=== PATIENT | female | born 1995 | race Hispanic/Latino ===

== ENCOUNTER 2018-12-18 07:16 | Inpatient (IN) | payer SELFPAY ==
[2018-12-18] MEDS ORDERED: KEPPRA 1,000 MG/NS 0.75% 100ML 1,000 MG/100 ML BAG IV ONE ×4 (07:55→16:14)
--- NOTE | 2018-12-18 08:00 | Emergency Department Report ---
ED Seizure HPI - General Chief Complaint: Seizure Stated Complaint: SEIZURE Time Seen by Provider: 12/18/18 07:58 Source: patient Mode of arrival: Ambulatory Limitations: No Limitations - History of Present Illness Initial Comments: Patient is a 23-year-old female that presents emergency room with seizure activity. Patient's postictal at this time and history is per patient's significant other. Patient's mother states that the patient was angry vehicle with a days ago but has not picked up her meds since being discharged from the hospital so she has not had meds for 2 days. Patient takes Dilantin, Keppra, Tegretol. Patient had 2 seizures yesterday and another seizure on the way to the hospital today. - Related Data Home Medications Medication Instructions Recorded Confirmed Last Taken Phenytoin Sodium Extended 300 mg PO TID 12/18/18 12/18/18 12/16/18 levETIRAcetam [Keppra TAB] 750 mg PO TID 12/18/18 12/18/18 12/16/18 Allergies Allergy/AdvReac Type Severity Reaction Status Date / Time lorazepam [From Ativan] Allergy Unknown Unknown Verified 12/18/18 07:31 ketorolac [From Toradol] Allergy Hives Verified 12/18/18 07:31 mayonnaise Allergy Unknown Verified 12/18/18 07:31 ED Review of Systems ROS: Stated complaint: SEIZURE Other details as noted in HPI Comment: Unobtainable due to pts medical conditions ED Past Medical Hx - Past Medical History Previous Medical History?: Yes Hx Hypertension: No Hx CVA: No Hx Heart Attack/AMI: No Hx Congestive Heart Failure: No Hx Diabetes: No Hx Deep Vein Thrombosis: No Hx Pulmonary Embolism: No Hx GERD: No Hx Liver Disease: No Hx Renal Disease: No Hx Sickle Cell Disease: No Hx Arthritis: No Hx Headaches / Migraines: Yes Hx Seizures: Yes Hx Kidney Stones: No Hx Psychiatric Treatment: No Hx Asthma: Yes Hx COPD: No Hx Tuberculosis: No Hx Dementia: No Hx HIV: No - Surgical History Past Surgical History?: Yes Hx Coronary Stent: No Hx Open Heart Surgery: No Hx Pacemaker: Yes Hx Internal Defibrillator: No Hx Cholecystectomy: No Hx Appendectomy: No Hx Breast Surgery: No - Family History Family history: no significant - Social History Smoking Status: Never Smoker Substance Use Type: Marijuana - Medications Home Medications: Home Medications Medication Instructions Recorded Confirmed Last Taken Type Phenytoin Sodium Extended 300 mg PO TID 12/18/18 12/18/18 12/16/18 History levETIRAcetam [Keppra TAB] 750 mg PO TID 12/18/18 12/18/18 12/16/18 History ED Physical Exam - General Limitations: Altered Mental Status, Physical Limitation General appearance: in no apparent distress, postictal - Head Head exam: Present: atraumatic, normocephalic - Eye Eye exam: Present: normal appearance - ENT ENT exam: Present: mucous membranes moist - Neck Neck exam: Present: normal inspection - Respiratory Respiratory exam: Present: normal lung sounds bilaterally. Absent: respiratory distress - Cardiovascular Cardiovascular Exam: Present: regular rate, normal rhythm. Absent: systolic murmur, diastolic murmur, rubs, gallop - GI/Abdominal GI/Abdominal exam: Present: soft, normal bowel sounds - Rectal Rectal exam: Present: deferred - Extremities Exam Extremities exam: Present: normal inspection - Back Exam Back exam: Present: normal inspection - Neurological Exam Neurological exam: Present: altered - Skin Skin exam: Present: warm, dry, intact, normal color. Absent: rash ED Course Vital Signs 12/18/18 12/18/18 12/18/18 07:34 07:48 07:51 Temperature 98.7 F Pulse Rate 95 H 86 Respiratory 18 16 22 Rate Blood Pressure Blood Pressure 116/71 [Left] O2 Sat by Pulse 100 99 Oximetry 12/18/18 12/18/18 12/18/18 08:00 08:15 08:30 Temperature Pulse Rate 74 72 74 Respiratory 20 14 12 Rate Blood Pressure 107/67 107/67 110/70 Blood Pressure [Left] O2 Sat by Pulse 99 Oximetry 12/18/18 12/18/18 12/18/18 08:45 09:01 10:01 Temperature Pulse Rate 94 H 84 70 Respiratory 24 17 15 Rate Blood Pressure 110/70 110/70 95/53 Blood Pressure [Left] O2 Sat by Pulse Oximetry 12/18/18 12/18/18 12/18/18 10:15 10:31 10:45 Temperature Pulse Rate 72 95 H 70 Respiratory 15 23 17 Rate Blood Pressure 95/53 95/53 95/53 Blood Pressure [Left] O2 Sat by Pulse Oximetry 12/18/18 12/18/18 12/18/18 11:00 11:15 11:30 Temperature Pulse Rate 63 84 77 Respiratory 9 L 12 20 Rate Blood Pressure 94/52 94/52 101/69 Blood Pressure [Left] O2 Sat by Pulse Oximetry 12/18/18 12/18/18 12/18/18 11:45 12:01 12:15 Temperature Pulse Rate 134 H 131 H 129 H Respiratory 18 22 16 Rate Blood Pressure 101/69 107/76 119/60 Blood Pressure [Left] O2 Sat by Pulse 100 98 97 Oximetry 12/18/18 12:22 Temperature Pulse Rate 144 H Respiratory 0 L Rate Blood Pressure Blood Pressure [Left] O2 Sat by Pulse 100 Oximetry - Reevaluation(s) Reevaluation #1: is alert and oriented 3. Patient denies any physical complaints. Discussed all results and clinical findings with patient. Patient is stable for discharge. Patient will be discharged home.. Patient agrees to plan of care.. Patient given discharge instructions. Patient voiced understanding of discharge instructions. 12/18/18 10:13 Patient began to have seizure activity. Seizure auto terminated and patient is now postictal. Patient is unable to take any type of benzos due to the fact that her throat swells closed with benzodiazepines. Patient was admitted to the hospitalist service. Discharge will be held. 12/18/18 10:40 Patient continues to have seizure and patient will be intubated to control her seizure activity. See procedure note 12/18/18 11:25 Patient intubated and will be placed on drip. Patient into bed without problem or complication 12/18/18 11:44 Patient still hasn't gotten a foreign object. Patient will be given ketamine and given 100 mg IV push of fentanyl. 12/18/18 12:15 She maxed out on fentanyl. Patient was placed on propofol drip. Patient also required another IV due to the amount of drip running. Patient had a left EJ started 12/18/18 12:35 - Consultations Consultation #1: Hospitalist consulted for admission. Hospitalist to admit patient. Hospitalist to assume care patient. 12/18/18 10:46 Hospitalist made aware of the multiple seizures the patient. 12/18/18 12:10 Dr. Krishnamurthy made aware of the number of seizures the patient has had since being intubated. 12/18/18 15:35 - EJ/Peripheral Line Neck L Time Out Performed: Yes Indications: nurses unable to establis Skin Cleansed in Sterile Fashion: Yes Size: 20 Dressing Placed: Tegaderm, tape Patient Tolerated Procedure: well - Intubation Time Out Performed: Yes Sedative: Etomidate Paralytic: Rocuronium Laryngoscope: Rene Size: 4 ET Tube Size: 7 Tube Secured Depth (cm): 22 Tube Secured Location: teeth Tube Placement Confirmation: visualized tube passing t, equal breath sounds bilat, no breath sounds over epi, confirmation by capnometr Patient Tolerated Procedure: well, no complications ED Medical Decision Making - Lab Data Result diagrams: 12/18/18 07:54 12/18/18 07:54 - Radiology Data Radiology results: report reviewed, image reviewed interpreted by me: Chest x-ray reviewed prior to x-ray being sent to radiologist and x-ray shows good placement of ET tube AP CHEST: HISTORY: Endotracheal tube placement The endotracheal tube is in good position terminating 3.9 cm superior to the jorje. A nasogastric tube is followed to the stomach. AP view of the chest demonstrates a normal mediastinal and cardiac contour with clear lungs and normal bony and soft tissue structures. IMPRESSION: Unremarkable AP chest - Medical Decision Making Patient is a 23-year-old female with known history of seizure that presented to the emergency room with complaints of seizure activity. Patient has missed her medications for 2 days. Patient seizure today most likely secondary to noncompliance and missed meds. Patient given Keppra 1 g IV in the ER. Patient has not had any seizure activity in the ER. Patient is stable for discharge. Patient's labs unremarkable. Patient states that she has prescriptions just needs to pick him up from the pharmacy. Patient advised and strongly urged not to miss medications. After plan discharge was placed, patient began to have seizures. Due to the fact the patient cannot take any type of benzodiazepine due to a allergy. Patient will be given another IV drip of Cerebyx. Patient will be admitted to the hospitalist service. Patient had multiple seizures in the ER and required intubation. Patient seizure difficult to treat due to allergy to benzos. Patient given fentanyl and propofol for sedation drip. Patient had a [place] placed. Patient had a chest x-ray - Differential Diagnosis seizure. Noncompliance. Miss doses. Critical Care Time: Yes Critical care attestation.: If time is entered above; I have spent that time in minutes in the direct care of this critically ill patient, excluding procedure time. Critical Care Time: 80 minutes ED Disposition Clinical Impression: Seizure, Noncompliance, Status epilepticus Uncontrolled seizures Qualifiers: Convulsion type: unspecified Qualified Code(s): R56.9 - Unspecified convulsions Disposition: OP ADMIT IP TO THIS HOSP Is pt being admited?: Yes Does the pt Need Aspirin: No Condition: Critical Time of Disposition: 10:42
[2018-12-18 08:13] LABS: Basophils # (Auto) 0.1 K/mm3 (0.0-0.1); Basophils % (Auto) 1.1 % (0.0-1.8); Eosinophils # (Auto) 0.1 K/mm3 (0.0-0.4); Eosinophils % (Auto) 2.3 % (0.0-4.3); Hematocrit 37.9 % (30.3-42.9); Hemoglobin 12.7 gm/dl (10.1-14.3); Lymphocytes # (Auto) 2.2 K/mm3 (1.2-5.4); Lymphocytes % (Auto) 37.2 % (13.4-35.0); Mean Corpuscular HGB Conc 33 % (30-34); Mean Corpuscular Volume 98 fl (79-97); Monocytes # (Auto) 0.5 K/mm3 (0.0-0.8); Monocytes % (Auto) 8.3 % (0.0-7.3); Platelet Count 247 K/mm3 (140-440); Red Blood Count 3.87 M/mm3 (3.65-5.03); Red Cell Distribution Width 14.5 % (13.2-15.2)
[2018-12-18 08:29] LABS: Alanine Aminotransferase 15 units/L (7-56); Albumin 4.4 g/dL (3.9-5); BUN/Creatinine Ratio 14; Blood Urea Nitrogen 7 mg/dL (7-17); Calcium 9.1 mg/dL (8.4-10.2); Hemolysis Index 34
[2018-12-18 08:36] LABS: Bilirubin,Direct < 0.2 mg/dL (0-0.2)
[2018-12-18] MEDS ORDERED: SUBLIMAZE IV PRN (11:22)
[2018-12-18] MEDS ORDERED: VASELINE LIP THERAPY TP PRN (11:22)
[2018-12-18] MEDS ORDERED: ARTIFICIAL TEARS OPHTH OINT OU PRN (11:22)
[2018-12-18] MEDS ORDERED: ZEMURON IV ONE ×2 (11:25)
[2018-12-18] MEDS ORDERED: AMIDATE IV ONE ×2 (11:25)
[2018-12-18] MEDS ORDERED: KETALAR ONE (11:25)
[2018-12-18] MEDS ORDERED: ZOFRAN IV PRN (11:42)
[2018-12-18] MEDS ORDERED: TYLENOL PO PRN (11:42)
[2018-12-18] MEDS ORDERED: SODIUM CHLORIDE FLUSH SYRINGE 10 ML IV PRN (11:42)
[2018-12-18] MEDS ORDERED: CEREBYX 1,000 MG.PE in NACL 0.9% 100 ML IV ONE (11:44)
--- NOTE | 2018-12-18 11:47 | History and Physical Report ---
History of Present Illness Date of examination: 12/18/18 Chief complaint: Seizure disorder History of present illness: Patient is status epileptics and history is obtained from the abductor and her boyfriend. 23-year-old female whose medical history is significant for seizure was presented to the emergency department for the complaints of seizure. Patient was discharged from [facility] 2 days ago and was not taking her medication for the last 2 days because she didn't get it. Was examining her insurance she was post ictal and later she started to seize and ED doctor intubated her and will be transferred to ICU. Patient is taking carbamazepine, Dilantin and Keppra at home. Per her boyfriend she doesn't have any other complaints. Patient was given IV Keppra, fosphenytoin. Patient is allergic to Ativan, she had history of respiratory failure and was intubated due to Ativan reaction. Review of systems couldn't be obtained because of the patient's mental status. Past History Past Medical History: seizures Past Surgical History: Other (Couldn't obtained because of the AMS.) Social history: full code Family history: other (Couldn't obtained because of the AMS.) Medications and Allergies Allergies Allergy/AdvReac Type Severity Reaction Status Date / Time lorazepam [From Ativan] Allergy Unknown Unknown Verified 12/18/18 07:31 ketorolac [From Toradol] Allergy Hives Verified 12/18/18 07:31 mayonnaise Allergy Unknown Verified 12/18/18 07:31 Home Medications Medication Instructions Recorded Confirmed Last Taken Type Phenytoin Sodium Extended 300 mg PO TID 12/18/18 12/18/18 12/16/18 History levETIRAcetam [Keppra TAB] 750 mg PO TID 12/18/18 12/18/18 12/16/18 History Active Meds: Active Medications Acetaminophen (Tylenol) 650 mg PO Q4H PRN PRN Reason: Pain MILD(1-3)/Fever >100.5/ARTIS Fentanyl (Sublimaze) 50 mcg IV Q10MIN PRN PRN Reason: ANALGESIA Hydrophilic Ointment (Vaseline Lip Therapy) 1 applic TP Q2HR PRN PRN Reason: Dry Lips Fosphenytoin Sodium 1,000 mg. (pe/ Sodium Chloride) 120 mls @ 200 mls/hr IV ONCE ONE Stop: 12/18/18 12:19 Fentanyl Citrate (Fentanyl Drip Premix) 2,000 mcg in 100 mls @ 2.313 mls/hr IV TITR CLAY; Protocol Dextrose/Sodium Chloride (D5/0.45ns) 1,000 mls @ 75 mls/hr IV DIRECT CLAY Levetiracetam 1,000 mg/ (Dextrose) 110 mls @ 400 mls/hr IV Q12HR CLAY Multi-Ingred Cream/Lotion/Oil/Oint (Artificial Tears Ophth Oint) 1 applic OU Q4HR PRN PRN Reason: Dry Eye(s) Ondansetron HCl (Zofran) 4 mg IV Q8H PRN PRN Reason: Nausea And Vomiting Sodium Chloride (Sodium Chloride Flush Syringe 10 Ml) 10 ml IV BID CLAY Sodium Chloride (Sodium Chloride Flush Syringe 10 Ml) 10 ml IV PRN PRN PRN Reason: LINE FLUSH Review of Systems ROS unobtainable: due to mental status (Couldn't obtained because of the AMS.) Exam - Physical Exam Narrative exam: Patient was intubated and on MV. The patient appeared well nourished and normally developed. Vital signs as documented. Head exam is unremarkable. No scleral icterus . Neck is without jugular venous distension, thyromegaly, or carotid bruits. Lungs are clear to auscultation. Cardiac exam reveals regular rate and Rhythm. Abdominal exam reveals normal bowel sounds, no masses, no organomegaly and no aortic enlargement. Extremities are nonedematous and both femoral and pedal pulses are normal. INVESTIGATOR UTILITY BILL COMPLAINTS: sedated. patient is seizing many times. - Constitutional Vitals: Temp Pulse Resp BP Pulse Ox 98.7 F 95 H 22 116/71 99 12/18/18 07:34 12/18/18 07:34 12/18/18 07:51 12/18/18 07:34 12/18/18 07:51 Results - Labs CBC & Chem 7: 12/18/18 07:54 12/18/18 07:54 Labs: Laboratory Last Values WBC 5.9 K/mm3 (4.5-11.0) 12/18/18 07:54 RBC 3.87 M/mm3 (3.65-5.03) 12/18/18 07:54 Hgb 12.7 gm/dl (10.1-14.3) 12/18/18 07:54 Hct 37.9 % (30.3-42.9) 12/18/18 07:54 MCV 98 fl (79-97) H 12/18/18 07:54 MCH 33 pg (28-32) H 12/18/18 07:54 MCHC 33 % (30-34) 12/18/18 07:54 RDW 14.5 % (13.2-15.2) 12/18/18 07:54 Plt Count 247 K/mm3 (140-440) 12/18/18 07:54 Lymph % (Auto) 37.2 % (13.4-35.0) H 12/18/18 07:54 [place] % (Auto) 8.3 % (0.0-7.3) H 12/18/18 07:54 Eos % (Auto) 2.3 % (0.0-4.3) 12/18/18 07:54 Baso % (Auto) 1.1 % (0.0-1.8) 12/18/18 07:54 Lymph # 2.2 K/mm3 (1.2-5.4) 12/18/18 07:54 [place] # 0.5 K/mm3 (0.0-0.8) 12/18/18 07:54 Eos # 0.1 K/mm3 (0.0-0.4) 12/18/18 07:54 Baso # 0.1 K/mm3 (0.0-0.1) 12/18/18 07:54 Seg Neutrophils % 51.1 % (40.0-70.0) 12/18/18 07:54 Seg Neutrophils # 3.0 K/mm3 (1.8-7.7) 12/18/18 07:54 Sodium 138 mmol/L (137-145) 12/18/18 07:54 Potassium 3.7 mmol/L (3.6-5.0) 12/18/18 07:54 Chloride 102.4 mmol/L (98-107) 12/18/18 07:54 Carbon Dioxide 23 mmol/L (22-30) 12/18/18 07:54 16 mmol/L 12/18/18 07:54 BUN 7 mg/dL (7-17) 12/18/18 07:54 0.5 mg/dL (0.7-1.2) L 12/18/18 07:54 Estimated GFR > 60 ml/min 12/18/18 07:54 14 % 12/18/18 07:54 Glucose 97 mg/dL (65-100) 12/18/18 07:54 Calcium 9.1 mg/dL (8.4-10.2) 12/18/18 07:54 0.30 mg/dL (0.1-1.2) 12/18/18 07:54 < 0.2 mg/dL (0-0.2) 12/18/18 07:54 0.1 mg/dL 12/18/18 07:54 AST 18 units/L (5-40) 12/18/18 07:54 ALT 15 units/L (7-56) 12/18/18 07:54 61 units/L (35-129) 12/18/18 07:54 76 units/L (30-135) 12/18/18 07:54 7.1 g/dL (6.3-8.2) 12/18/18 07:54 4.4 g/dL (3.9-5) 12/18/18 07:54 1.6 % 12/18/18 07:54 Assessment and Plan Assessment and plan: Status epilepticus - Patient was given IV keppra, phenobarbital, fosphenotoin - Despite that the patient is actively seizing Acute respiratory failure due to status epilepticus - Patient is intubated and on MV - Patient is propofol The high probability of a clinically significant, sudden or life threatening deterioration of the [Neurology, Respiratory] system(s) required my full and direct attention, intervention and personal management. The aggregate critical care time was [34] minutes. This time is in addition to time spent performing reported procedures but includes the following: [x] Data Review and interpretation [x] Patient assessment and monitoring of vital signs [x] Documentation [x] Medication orders and management
[2018-12-18] MEDS ORDERED: SODIUM CHLORIDE FLUSH SYRINGE 10 ML IV SCH (12:00)
[2018-12-18] MEDS ORDERED: fentaNYL DRIP Premix 2,000 MCG/100 ML BAG IV SCH (12:00)
[2018-12-18] MEDS ORDERED: D5/0.45NS 1,000 ML IV SCH (12:00)
[2018-12-18] MEDS ORDERED: SUBLIMAZE ONE (12:06)
[2018-12-18] MEDS ORDERED: SUBLIMAZE IV ONE (12:09)
[2018-12-18] MEDS ORDERED: KETALAR IV ONE ×2 (12:11→12:30)
[2018-12-18 12:13] LABS: HCG Qualitative,Urine Negative (Negative)
[2018-12-18 12:16] LABS: Bilirubin,Urine NEG (Negative); Blood,Urine NEG (Negative); Color,Urine Straw (Yellow); Protein,Urine <15 mg/dL mg/dL (Negative); RBC,Urine < 1.0 /HPF (0.0-6.0); Urobilinogen,Urine < 2.0 mg/dL (<2.0); WBC,Urine < 1.0 /HPF (0.0-6.0)
[2018-12-18 12:22] LABS: Amphetamine Screen,Urine PRESUMPTIVE NEGATIVE; Benzodiazepines Screen,Urine PRESUMPTIVE NEGATIVE; Cocaine Screen,Urine PRESUMPTIVE NEGATIVE; Methadone Screen,Urine PRESUMPTIVE NEGATIVE; Opiate Screen,Urine PRESUMPTIVE NEGATIVE
[2018-12-18] MEDS ORDERED: DIPRIVAN 10 MG/ML 1,000 MG/100 ML BOTTLE IV ONE (12:34)
[2018-12-18] MEDS ORDERED: NACL 0.9% 1000 ML 1,000 ML ONE (12:35)
[2018-12-18 12:36] LABS: Cannabinoid Screen,Urine PRESUMPTIVE POSITIVE
[2018-12-18] MEDS ORDERED: DIPRIVAN 10 MG/ML IV ONE (12:37)
[2018-12-18] MEDS ORDERED: NACL 0.9% 1000 ML 1,000 ML IV ONE (12:46)
[2018-12-18] MEDS ORDERED: DIPRIVAN 10 MG/ML 1,000 MG/100 ML BOTTLE IV SCH ×2 (13:00)
--- NOTE | 2018-12-18 13:40 | XRay Report ---
AP CHEST: HISTORY: Endotracheal tube placement The endotracheal tube is in good position terminating 3.9 cm superior to the jorje. A nasogastric tube is followed to the stomach. AP view of the chest demonstrates a normal mediastinal and cardiac contour with clear lungs and normal bony and soft tissue structures. IMPRESSION: Unremarkable AP chest.
[2018-12-18] MEDS ORDERED: NACL 0.9% IV ONE (15:00)
[2018-12-18] MEDS ORDERED: PHENOBARBITAL IV ONE (15:00)
[2018-12-18] MEDS ORDERED: ZOFRAN ONE (15:01)
--- NOTE | 2018-12-18 15:53 | Discharge Summary ---
Providers - Providers Date of Admission: 12/18/18 10:45 Date of discharge: 12/18/18 Attending physician: TAMICA CISNEROS MD 12/18/18 11:22 Consult to Dietitian/Nutrition [CONS] Routine Physician Instructions: Reason For Exam: Reason for Consult: Evaluate nutritional intake 12/18/18 11:42 Consult to Physician [CONS] Routine Comment: Consulting Provider: ANABEL BARNETT Physician Instructions: Reason For Exam: status epilepticus [facility] Reason for admission: status epilepticus Condition: Critical Hospital course: 23-year-old female with past medical history significant for epilepsy presented to ED for status epilepticus. Patient was treated with IV Keppra, phenobarbital, fosphenytoin, propofol despite that the patient continued to seize. Patient is intubated and on mechanical ventilation. Patient was discharged from [place] 3 days ago after she was treated for seizure disorder. Patient said she didn't get her medications so she didn't take the medication for the last 2 days. I called [place] neuro ICU and discussed with Henry Ramirez and she accepted the patient to be admitted there at neuro ICU. Patient is transferred there. Disposition: [id number] [facility] Time spent for discharge: 32 minutes - Discharge Diagnoses (1) Status epilepticus Status: Acute (2) Uncontrolled seizures Status: Acute Qualifiers: Convulsion type: unspecified Qualified Code(s): R56.9 - Unspecified convulsions Core Measure Documentation - Palliative Care Palliative Care/ Comfort Measures: Not Applicable - Core Measures Any of the following diagnoses?: none Exam - Physical Exam Narrative exam: Patient was intubated and on MV. The patient appeared well nourished and normally developed. Vital signs as documented. Head exam is unremarkable. No scleral icterus . Neck is without jugular venous distension, thyromegaly, or carotid bruits. Lungs are clear to auscultation. Cardiac exam reveals regular rate and Rhythm. Abdominal exam reveals normal bowel sounds, no masses, no organomegaly and no aortic enlargement. Extremities are nonedematous and both femoral and pedal pulses are normal. COMPENSATION SPECIALIST: sedated. patient is seizing many times. - Constitutional Vitals: Temp Pulse Resp BP Pulse Ox 98.7 F 144 H 0 L 119/60 100 12/18/18 07:34 12/18/18 12:22 12/18/18 12:22 12/18/18 12:15 12/18/18 12:22 Plan Activity: no restrictions Weight Bearing Status: Full Weight Bearing Follow up with: KATHARINE YATES MD [Primary Care Provider] - 3-5 Days
[2018-12-18] MEDS ORDERED: KEPPRA 1,000 MG in D5W 100 ML IV SCH ×2 (16:00→22:00)
[2018-12-18 16:14] VITALS: BP 108/77
[2018-12-18] MEDS ORDERED: KEPPRA 1,000 MG/NS 0.75% 100ML 1,000 MG/100 ML BAG IV SCH (22:00)
== END 2018-12-18 16:30 | disposition short-term general hospital (02) | DRG 100 ==
LOC: ED 07:16 → CC1 10:45
PROVIDERS: ADMIT Internal Medicine; ATTEND Internal Medicine
PROC: 5A1935Z Respiratory Ventilation, Less than 24 Consecutive Hours (ICD-10-PCS; principal; 2018-12-18)
PROC: 0BH17EZ Insertion of Endotracheal Airway into Trachea, Via Natural or Artificial Opening (ICD-10-PCS; 2018-12-18)
PROC: 4A033R1 Measurement of Arterial Saturation, Peripheral, Percutaneous Approach (ICD-10-PCS; 2018-12-18)
DX: G40.901 Epilepsy, unspecified, not intractable, with status epilepticus (principal); J96.00 Acute respiratory failure, unspecified whether with hypoxia or hypercapnia; F12.90 Cannabis use, unspecified, uncomplicated; G43.909 Migraine, unspecified, not intractable, without status migrainosus; J45.909 Unspecified asthma, uncomplicated; Z88.8 Allergy status to other drugs, medicaments and biological substances; Z88.6 Allergy status to analgesic agent; Z95.0 Presence of cardiac pacemaker; Z91.19 Patient's noncompliance with other medical treatment and regimen
CPT/HCPCS: 36415; 36600; 71045; 80053; 80076; 80156; 80164; 80177; 80185; 80307; 81001; 81025; 82550; 82803; 84703; 85025; 87070; 87205; 94002; 96374; 96375; 99292; G0378; J1953; J2405; J2560; J2704; J3010; J7030; Q2009

== ENCOUNTER 2019-04-22 19:40 | Emergency (ER) | payer SELFPAY ==
--- NOTE | 2019-04-22 20:05 | Emergency Department Report ---
Blank Doc - Documentation Documentation: 23-year-old female that presents with headache with history of migrane headach es. Stated symptoms are similar. Denies worst headache or thunderclap headache. This initial assessment/diagnostic orders/clinical plan/treatment(s) is/are subject to change based on patient's health status, clinical progression and re- assessment by fellow clinical providers in the ED. Further treatment and workup at subsequent clinical providers discretion. Patient/guardians urged not to yudy pe from the ED as their condition may be serious if not clinically assessed and managed. Initial orders include: 1- Patient sent to [facility] for further evaluation and treatment
[2019-04-22] MEDS ORDERED: diphenhydrAMINE 25 MG CAP PO ONE (20:45)
[2019-04-22] MEDS ORDERED: dexAMETHasone 20 MG/5 ML VIAL IM ONE (20:46)
[2019-04-22] MEDS ORDERED: ACETAMINOPHEN 500 MG TAB PO ONE (20:46)
[2019-04-22] MEDS ORDERED: METOCLOPRAMIDE 10 MG TAB PO ONE (20:46)
--- NOTE | 2019-04-22 21:22 | Emergency Department Report ---
ED Headache HPI - General Chief Complaint: Headache Stated Complaint: MIGRAINE X 3DAYS Time Seen by Provider: 04/22/19 20:04 - History of Present Illness Initial Comments: Pt is a 23-year-old female that presents with headache with history of migrane headaches and bipolare disorder. Stated symptoms are similar to headaches of past, frontal 7/10 sharp, no n/v, no photophobia. Denies worst headache or thunderclap headache. usual tx is ibuprofen, states out of same. Timing/Duration: 24 hours Quality: moderate Head Injury Location: frontal Recent Head Trauma: frequent headaches Associated Symptoms: denies symptoms Allergies/Adverse Reactions: Allergies lorazepam [From Ativan] Allergy (Unknown, Verified 12/18/18 07:31) Unknown pt recieved Ativan 4mg per EMS ketorolac [From Toradol] Allergy (Verified 12/18/18 07:31) Hives mayonnaise Allergy (Verified 12/18/18 07:31) Unknown Home Medications: Ambulatory Orders Phenytoin Sodium Extended 300 mg PO TID 12/18/18 levETIRAcetam [Keppra TAB] 750 mg PO TID 12/18/18 Acetaminophen [Acetaminophen TAB] 1,000 mg PO Q6HR PRN #30 tablet 04/22/19 Metoclopramide [Reglan] 10 mg PO TID PRN #30 tab 04/22/19 diphenhydrAMINE [Benadryl CAP] 25 mg PO Q8HR PRN #30 capsule 04/22/19 ED Review of Systems ROS: Stated complaint: MIGRAINE X 3DAYS Other details as noted in HPI Constitutional: denies: chills, fever Eyes: denies: eye pain, eye discharge, vision change ENT: denies: ear pain, throat pain Respiratory: denies: cough, shortness of breath, wheezing Cardiovascular: denies: chest pain, palpitations Endocrine: no symptoms reported Gastrointestinal: denies: abdominal pain, nausea, diarrhea Genitourinary: frequency. denies: urgency, dysuria, hematuria, discharge, dyspareunia Musculoskeletal: back pain. denies: joint swelling, arthralgia Skin: denies: rash, lesions Neurological: headache. denies: weakness, numbness, paresthesias, confusion, vertigo Psychiatric: denies: anxiety, depression Hematological/Lymphatic: denies: easy bleeding, easy bruising ED Past Medical Hx - Past Medical History Previous Medical History?: Yes Hx Hypertension: No Hx CVA: No Hx Heart Attack/AMI: No Hx Congestive Heart Failure: No Hx Diabetes: No Hx Deep Vein Thrombosis: No Hx Pulmonary Embolism: No Hx GERD: No Hx Liver Disease: No Hx Renal Disease: No Hx Sickle Cell Disease: No Hx Arthritis: No Hx Headaches / Migraines: Yes Hx Seizures: Yes Hx Kidney Stones: No Hx Psychiatric Treatment: No Hx Asthma: Yes Hx COPD: No Hx Tuberculosis: No Hx Dementia: No Hx HIV: No - Surgical History Past Surgical History?: No Hx Coronary Stent: No Hx Open Heart Surgery: No Hx Pacemaker: Yes Hx Internal Defibrillator: No Hx Cholecystectomy: No Hx Appendectomy: No Hx Breast Surgery: No - Social History Smoking Status: Current Every Day Smoker Substance Use Type: Marijuana - Medications Home Medications: Home Medications Medication Instructions Recorded Confirmed Last Taken Type Phenytoin Sodium Extended 300 mg PO TID 12/18/18 12/18/18 12/16/18 History levETIRAcetam [Keppra TAB] 750 mg PO TID 12/18/18 12/18/18 12/16/18 History Acetaminophen [Acetaminophen TAB] 1,000 mg PO Q6HR PRN #30 tablet 04/22/19 Unknown Rx Metoclopramide [Reglan] 10 mg PO TID PRN #30 tab 04/22/19 Unknown Rx diphenhydrAMINE [Benadryl CAP] 25 mg PO Q8HR PRN #30 capsule 04/22/19 Unknown Rx ED Physical Exam - General Limitations: No Limitations General appearance: alert, in no apparent distress - Head Head exam: Present: atraumatic, normocephalic - Eye Eye exam: Present: normal appearance, PERRL, EOMI Pupils: Present: normal accommodation - ENT ENT exam: Present: mucous membranes moist - Neck Neck exam: Present: normal inspection, full ROM. Absent: tenderness, meningismus, lymphadenopathy, thyromegaly - Respiratory Respiratory exam: Present: normal lung sounds bilaterally. Absent: respiratory distress, wheezes, stridor, chest wall tenderness - Cardiovascular Cardiovascular Exam: Present: regular rate, normal rhythm, normal heart sounds. Absent: systolic murmur, diastolic murmur, rubs, gallop - GI/Abdominal GI/Abdominal exam: Present: soft, normal bowel sounds. Absent: distended, tenderness, bruit, hernia - Rectal Rectal exam: Present: deferred - Extremities Exam Extremities exam: Present: normal inspection, full ROM. Absent: tenderness - Back Exam Back exam: Present: normal inspection, full ROM, tenderness, CVA tenderness (R). Absent: CVA tenderness (L), muscle spasm, paraspinal tenderness, vertebral tenderness, rash noted - Neurological Exam Neurological exam: Present: alert, oriented X3, CN II-XII intact, normal gait, reflexes normal. Absent: motor sensory deficit - Expanded Neurological Exam Expanded Neurological exam: Absent: ataxia Patient oriented to: Present: person, place, time Speech: Present: fluid speech Cranial nerves: EOM's Intact: Normal, Gag Reflex: Normal, Tongue Deviation: Normal, Nystagmus: Normal, Facial Sensation: Normal Upper motor neuron: Cliff Neglect: Normal, Pronator Drift: Normal Motor strength exam: RUE: 5, LUE: 5, RLE: 5, LLE: 5 DTR: bicep (R): 2+, bicep (L): 2+, ankle (R): 2+, ankle (L): 2+ Best Eye Response ([place]): (4) open spontaneously Best Motor Response ([place]): (6) obeys commands Best Verbal Response ([place]): (5) oriented [place] Total: 15 - Psychiatric Psychiatric exam: Present: normal affect, normal mood - Skin Skin exam: Present: warm, dry, intact, normal color. Absent: rash ED Course Vital Signs 04/22/19 20:05 Temperature 98.4 F Pulse Rate 83 Respiratory 18 Rate Blood Pressure 117/63 O2 Sat by Pulse 99 Oximetry - Reevaluation(s) Reevaluation #1: headache is relived, await ua results pt is restiing quitely with nad at this time. 04/22/19 22:30 ED Medical Decision Making - Medical Decision Making 2303: pt now advises symptoms relieved, declines ua states she is ready to go. home, plan: tylenol, benadryl, reglan, follow up with pcp in 2-3 days , return to ed if symptoms worsen. PT verbalized agreement and understanding of discharge plan. Critical care attestation.: If time is entered above; I have spent that time in minutes in the direct care of this critically ill patient, excluding procedure time. ED Disposition Clinical Impression: Headache Qualifiers: Headache type: unspecified Headache chronicity pattern: acute headache Intractability: not intractable Qualified Code(s): R51 - Headache Disposition: DC- TO HOME OR SELFCARE Is pt being admited?: No Does the pt Need Aspirin: No Condition: Stable Instructions: Acute Headache (ED) Prescriptions: Acetaminophen [Acetaminophen TAB] 1,000 mg PO Q6HR PRN #30 tablet PRN Reason: Headache diphenhydrAMINE [Benadryl CAP] 25 mg PO Q8HR PRN #30 capsule PRN Reason: Headache Metoclopramide [Reglan] 10 mg PO TID PRN #30 tab PRN Reason: Headache Referrals: PRIMARY MD KARINA [Primary Care Provider] - 3-5 Days [facility] [place] [Outside] - 3-5 Days YAN FOREMAN MD [Referring] - 3-5 Days [facility] [Outside] - 3-5 Days Forms: Work/School Release Form(ED) Time of Disposition: 23:07
[2019-04-22 23:24] LABS: Bilirubin,Urine NEG (Negative); Blood,Urine NEG (Negative); Color,Urine Yellow (Yellow); Mucus,Urine FEW /HPF; Protein,Urine <15 mg/dL mg/dL (Negative); RBC,Urine < 1.0 /HPF (0.0-6.0); Urobilinogen,Urine < 2.0 mg/dL (<2.0); WBC,Urine < 1.0 /HPF (0.0-6.0)
[2019-04-22 23:25] VITALS: BP 103/58
== END 2019-04-22 23:26 | disposition home or self-care (01) ==
LOC: ED 19:40
DX: G43.909 Migraine, unspecified, not intractable, without status migrainosus (principal); J45.909 Unspecified asthma, uncomplicated
CPT/HCPCS: 81001; 96372; 99283; J1100

== ENCOUNTER 2021-08-26 13:54 | Emergency (ER) | payer SELFPAY ==
[2021-08-26] MEDS ORDERED: PHENYTOIN 1,000 MG in SODIUM CHLORIDE 0.9% 250ML 250 ML IV ONE (14:07)
[2021-08-26] MEDS ORDERED: SODIUM CHLORIDE 0.9% 1000 ML 1,000 ML IV ONE (14:07)
[2021-08-26 14:50] LABS: Bilirubin,Urine NEG (Negative); Blood,Urine NEG (Negative); Color,Urine Yellow (Yellow); Mucus,Urine 1+ /HPF; Protein,Urine <15 mg/dL mg/dL (Negative); Urobilinogen,Urine < 2.0 mg/dL (<2.0)
[2021-08-26 14:52] LABS: HCG Qualitative,Urine Negative (Negative)
[2021-08-26 14:57] LABS: Amphetamine Screen,Urine Negative; Cocaine Screen,Urine Negative; Methadone Screen,Urine Negative; Opiate Screen,Urine Negative
[2021-08-26 15:09] LABS: Benzodiazepines Screen,Urine Positive; Cannabinoid Screen,Urine Positive
--- NOTE | 2021-08-26 15:21 | XRay Report ---
CHEST 1 VIEW 08/26/2021 3:04 PM INDICATION / CLINICAL INFORMATION: Dyspnea. COMPARISON: One view of the chest from 12/18/2018 FINDINGS: SUPPORT DEVICES: None. HEART / MEDIASTINUM: No significant abnormality. LUNGS / PLEURA: No significant pulmonary abnormality. No significant pleural effusion. No pneumothora x. ADDITIONAL FINDINGS: No significant additional findings. IMPRESSION: 1. No acute abnormality of the chest. Signer Name: Michael Tarango MD Signed: 08/26/2021 3:17 PM Workstation Name: [id number]
[2021-08-26 15:51] LABS: Alanine Aminotransferase 21 units/L (7-56); Albumin 5.1 g/dL (3.9-5); Blood Urea Nitrogen 10 mg/dL (7-17); Calcium 9.8 mg/dL (8.4-10.2); Hemolysis Index 4
[2021-08-26 15:54] LABS: BUN/Creatinine Ratio 17; Bilirubin,Direct < 0.2 mg/dL (0-0.2)
[2021-08-26 15:57] LABS: Basophils # (Auto) 0.1 K/mm3 (0.0-0.1); Basophils % (Auto) 0.8 % (0.0-1.8); Eosinophils % (Auto) 0.2 % (0.0-4.3); Hematocrit 43.1 % (30.3-42.9); Hemoglobin 13.9 gm/dl (10.1-14.3); Lymphocytes # (Auto) 0.9 K/mm3 (1.2-5.4); Lymphocytes % (Auto) 7.6 % (13.4-35.0); Mean Corpuscular HGB Conc 32 % (30-34); Mean Corpuscular Volume 98 fl (79-97); Monocytes # (Auto) 0.7 K/mm3 (0.0-0.8); Monocytes % (Auto) 5.9 % (0.0-7.3); Platelet Count 231 K/mm3 (140-440); Red Blood Count 4.38 M/mm3 (3.65-5.03); Red Cell Distribution Width 12.8 % (13.2-15.2)
[2021-08-26] MEDS ORDERED: HALOPERIDOL LACTATE 5 MG/1 ML INJ IV ONE (17:43)
--- NOTE | 2021-08-26 18:06 | Emergency Department Report ---
ED Seizure HPI - General Chief Complaint: Seizure Stated Complaint: SEIZURE Time Seen by Provider: 08/26/21 14:04 Source: EMS Mode of arrival: Stretcher Limitations: No Limitations - History of Present Illness MD Complaint: possible seizure, shaking -: Gradual, hour(s) Description of Episode: other (shaking ) Place: home Possible Precipitating Event: none, drug use Treatments Prior to Arrival: benzodiazepines - Related Data Home Medications Medication Instructions Recorded Confirmed Last Taken Phenytoin Sodium Extended 300 mg PO TID 12/18/18 12/18/18 12/16/18 levETIRAcetam [Keppra TAB] 750 mg PO TID 12/18/18 12/18/18 12/16/18 Previous Rx's Medication Instructions Recorded Last Taken Type Acetaminophen [Acetaminophen TAB] 1,000 mg PO Q6HR PRN #30 tablet 04/22/19 Unknown Rx Metoclopramide [Reglan] 10 mg PO TID PRN #30 tab 04/22/19 Unknown Rx diphenhydrAMINE [Benadryl CAP] 25 mg PO Q8HR PRN #30 capsule 04/22/19 Unknown Rx Allergies Allergy/AdvReac Type Severity Reaction Status Date / Time lorazepam [From Ativan] Allergy Unknown Unknown Verified 12/18/18 07:31 ketorolac [From Toradol] Allergy Hives Verified 12/18/18 07:31 mayonnaise Allergy Unknown Verified 12/18/18 07:31 ED Review of Systems ROS: Stated complaint: SEIZURE Other details as noted in HPI ED Past Medical Hx - Past Medical History Hx Hypertension: No Hx CVA: No Hx Heart Attack/AMI: No Hx Congestive Heart Failure: No Hx Diabetes: No Hx Deep Vein Thrombosis: No Hx Pulmonary Embolism: No Hx GERD: No Hx Liver Disease: No Hx Renal Disease: No Hx Sickle Cell Disease: No Hx Arthritis: No Hx Headaches / Migraines: Yes Hx Seizures: Yes Hx Kidney Stones: No Hx Psychiatric Treatment: No Hx Asthma: Yes Hx COPD: No Hx Tuberculosis: No Hx Dementia: No Hx HIV: No - Surgical History Hx Coronary Stent: No Hx Open Heart Surgery: No Hx Pacemaker: Yes Hx Internal Defibrillator: No Hx Cholecystectomy: No Hx Appendectomy: No Hx Breast Surgery: No - Social History Smoking Status: Never Smoker - Medications Home Medications: Home Medications Medication Instructions Recorded Confirmed Last Taken Type Phenytoin Sodium Extended 300 mg PO TID 12/18/18 12/18/18 12/16/18 History levETIRAcetam [Keppra TAB] 750 mg PO TID 12/18/18 12/18/18 12/16/18 History Acetaminophen [Acetaminophen TAB] 1,000 mg PO Q6HR PRN #30 tablet 04/22/19 Unknown Rx Metoclopramide [Reglan] 10 mg PO TID PRN #30 tab 04/22/19 Unknown Rx diphenhydrAMINE [Benadryl CAP] 25 mg PO Q8HR PRN #30 capsule 04/22/19 Unknown Rx ED Physical Exam - General Limitations: No Limitations General appearance: other (shaking ) - Head Head exam: Present: atraumatic, normocephalic - Eye Eye exam: Present: normal appearance - ENT ENT exam: Present: mucous membranes moist - Neck Neck exam: Present: normal inspection - Respiratory Respiratory exam: Present: normal lung sounds bilaterally. Absent: respiratory distress - Cardiovascular Cardiovascular Exam: Present: regular rate, normal rhythm. Absent: systolic murmur, diastolic murmur, rubs, gallop - GI/Abdominal GI/Abdominal exam: Present: soft, normal bowel sounds - Extremities Exam Extremities exam: Present: normal inspection - Back Exam Back exam: Present: normal inspection - Skin Skin exam: Present: warm, dry, intact, normal color. Absent: rash ED Course Vital Signs 08/26/21 08/26/21 08/26/21 14:32 14:35 14:37 Temperature 98.9 F 98.1 F Pulse Rate 93 H 93 H Respiratory 18 18 Rate Blood Pressure 139/66 Blood Pressure 139/66 [Left] O2 Sat by Pulse 100 100 100 Oximetry 08/26/21 14:52 Temperature Pulse Rate Respiratory Rate Blood Pressure Blood Pressure [Left] O2 Sat by Pulse 99 Oximetry - Reevaluation(s) Reevaluation #1: 08/26/21 18:08 pt had stable vital signs , she was showing symptoms of pseudo seizure consistent with her her history and neuro notes , she was given 14 mg of versed prior to arrival , she was talking to me following commands while shaking , fluids given , haldol given 2.5 and she woke up right away became more alert and answering questions and requested to go home 08/26/21 18:14 pt was started on tegretol for bipolar and seizure before by her neurologist ED Medical Decision Making - Lab Data Result diagrams: 08/26/21 14:37 08/26/21 14:37 Critical care attestation.: If time is entered above; I have spent that time in minutes in the direct care of this critically ill patient, excluding procedure time. ED Disposition Clinical Impression: Psychiatric pseudoseizure Disposition: HOME / SELF CARE / HOMELESS Is pt being admited?: No Does the pt Need Aspirin: No Condition: Stable Instructions: Non-Epileptic Seizures, Adult Referrals: DANNIE CARRERA MD [Primary Care Provider] - 3-5 Days
[2021-08-26 18:12] VITALS: BP 124/75
== END 2021-08-26 18:14 | disposition home or self-care (01) ==
LOC: ED 13:54
DX: R56.9 Unspecified convulsions (principal); G43.909 Migraine, unspecified, not intractable, without status migrainosus; J45.909 Unspecified asthma, uncomplicated; G20 Parkinson's disease
CPT/HCPCS: 36415; 71045; 80053; 80076; 80156; 80307; 81001; 81025; 85025; 96365; 96375; 99284; J1165; J1630; J7030; J7050; 80320; Q0162; G0480